=== PATIENT | female | born 1970 | race Two or more races ===

== ENCOUNTER 2020-03-21 05:58 | Day surgery (SDC) | payer OTHER ==
[~2020-03-21 05:58] MED LIST: ATORVASTATIN CA40 MG PO; CYMBALTA60 MG PO; LOSARTAN POTAS100 MG PO; PREMARIN0.45 MG PO; VERELAN180 MG PO; ZANAFLEX4 M1 PO
== END 2020-03-21 14:12 | disposition home or self-care (01) ==
LOC: CIR.AMB 05:58 → EDBD 13:45 → CIR.AMB 14:12
PROVIDERS: ATTEND Colon & Rectal Surgery
DX: K64.8 Other hemorrhoids (principal); K64.4 Residual hemorrhoidal skin tags